=== PATIENT | male | born 1980 | race American Indian/Alaskan Native ===

== ENCOUNTER 2019-01-05 06:38 | Inpatient (IN) ==
[2019-01-05] MEDS ORDERED: CLINDAMYCIN 600 MG in DEXTROSE 5% IN WATER 50 ML IV SCH (07:30)
[2019-01-05 08:20] LABS: Basophils # (Auto) 0 K/mcL (0.0-0.3); Basophils % (Auto) 0.3 % (0.0-2.0); Eosinophils # (Auto) 0.2 K/mcL (0.0-0.7); Eosinophils % (Auto) 1.3 % (0.0-7.0); Granulocytes % (Auto) 88.4 % (38.0-78.0); Hemoglobin 8.5 g/dL (13.5-16.5); Lymphocytes # (Auto) 0.9 K/mcL (1.5-4.8); Lymphocytes % (Auto) 5.6 % (15.5-49.0); Mean Cell Volume 89.8 fL (80.0-100.0); Mean Corpuscular HGB Conc 32.7 g/dL (31.0-36.0); Mean Platelet Volume 8.4 fL (7.4-10.4); Monocytes # (Auto) 0.7 K/mcL (0.1-0.9); Monocytes % (Auto) 4.4 % (1.0-12.0); Platelet Count 345 K/mcL (140-440); RBC 2.89 M/mcL (4.50-5.90); Red Cell Distribution Width 14.7 % (11.5-14.5); WBC 15.5 K/mcL (4.5-11.0)
--- NOTE | 2019-01-05 08:34 | XRay Report ---
HISTORY: Preop for drainage and debridement of a perineal mass FINDINGS: The lungs are clear and normally expanded. The bilateral infiltrates seen on the prior chest x-ray done on 10/09/18 have resolved. The heart, mediastinum, ursula and pleura are normal. IMPRESSION: Normal chest. Interpreted and Authenticated by: Cong Jolley 01/05/19
[2019-01-05 08:43] LABS: INR 1.3 (0.9-1.1); Prothrombin Time 16.3 sec (11.9-14.5)
[2019-01-05 08:45] LABS: ALT/SGPT 11 U/l (0-40); AST/SGOT 12 U/l (0-37); Albumin 3.5 gm/dL (3.2-5.2); Albumin/Globulin Ratio 0.9 (1.0-2.3); Alkaline Phosphatase 75 U/L (39-117); Bilirubin,Total 0.7 mg/dL (0.0-1.0); Blood Urea Nitrogen 34 mg/dl (6-20); Calcium 8.4 mg/dl (8.6-10.4); Carbon Dioxide 28 mmol/L (22-30); Chloride 88 mmol/L (96-108); Globulin 3.7 gm/dL (2.2-3.7); Glomerular Filtration Rate 7; Glucose 183 mg/dL (70-105); Potassium 4.6 mmol/L (3.3-5.1); Sodium 135 mmol/L (133-145)
[2019-01-05] MEDS ORDERED: GLYCOPYRROLATE 0.2 MG/ML VIAL IV ONE (10:15)
[2019-01-05] MEDS ORDERED: ONDANSETRON 4 MG/2 ML VIAL IV ONE (10:15)
[2019-01-05] MEDS ORDERED: KETAMINE 100 MG/ML ML IV ONE (10:15)
[2019-01-05] MEDS ORDERED: LIDOCAINE HCL/PF 100 MG/5 ML SYRINGE IV ONE (10:15)
[2019-01-05] MEDS ORDERED: fentaNYL 100 MCG/2 ML VIAL IV ONE (10:15)
[2019-01-05] MEDS ORDERED: PHENYLEPHRINE 10 MG/ML VIAL IV ONE (10:15)
[2019-01-05] MEDS ORDERED: MIDAZOLAM 2 MG/2 ML VIAL IV ONE (10:15)
[2019-01-05] MEDS ORDERED: PROPOFOL 200 MG/20 ML VIAL IV ONE (10:15)
--- NOTE | 2019-01-05 10:54 | Brief Operative Note ---
Date of procedure: 01/05/19 Pre-op diagnosis: perineal abscess Post-op diagnosis: other (perineal abscess) Procedure: DRAINAGE AND DEBRIDEMENT OF PERINEAL ABSCESS Grafts/Implants: No Anesthesia: GLMA Findings: ABSCESS EXTENDING FROM ANTERIOR RECTAL SPACE TO BASE OF SCROTUM Complications: other (TRANSIENT HYPOTENSION ON INDUCTION OF ANESTHESIA) Surgeon: Nathanael Powell Estimated blood loss (cc): 20 Specimens Removed/Pathology: other (CULTURE OF ABSCESS FLUID) Condition: stable Disposition: PACU
[2019-01-05] MEDS ORDERED: fentaNYL 100 MCG/2 ML VIAL IV PRN (11:17)
[2019-01-05] MEDS: 0.9 % SODIUM CHLORIDE 1,000 ML IV SCH (12:30)
[2019-01-05] MEDS ORDERED: ACETAMINOPHEN 1,000 MG/100 ML BOTTLE IV ONE ×2 (12:31→21:29)
[2019-01-05] MEDS: PIPERACILLIN SODIUM/TAZOBACTAM 3.375 GM in DEXTROSE 5% IN WATER 50 ML IV SCH ×2 (12:33→21:42)
[2019-01-05] MEDS: ACETAMINOPHEN 1,000 MG in PREMIX 1 BAG IV SCH ×2 (12:35→21:38)
[2019-01-05] MEDS ORDERED: DEXTROSE 31 GM ORAL.SUSP PO PRN (13:38)
[2019-01-05] MEDS ORDERED: DEXTROSE 50% 50 ML VIAL IV PRN (13:38)
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
[2019-01-05] MEDS ORDERED: 0.9 % SODIUM CHLORIDE 10 ML SYRINGE IV SCH ×2 (14:00)
[2019-01-05] MEDS: 0.9 % SODIUM CHLORIDE 10 ML SYRINGE IV SCH ×2 (14:17→21:56)
--- NOTE | 2019-01-05 16:20 | Operative Note ---
DATE OF OPERATION: 01/05/2019 PREOPERATIVE DIAGNOSIS: Perineal abscess. POSTOPERATIVE DIAGNOSIS: Perineal abscess. PROCEDURE: Drainage and debridement of perineal abscess. SURGEON: Nathanael Powell M.D. FINDINGS: Abscess extending from the anterior rectal space to the base of the scrotum in the midline and extending about 8 cm along the lateral rectal wall. COMPLICATIONS: Transient hypotension after induction of anesthesia. DESCRIPTION OF PROCEDURE: Under general anesthesia, the patient was prepped and draped in the sterile field. While the patient was being prepped, he had a severe profound hypotension with blood pressure less than 60. He was taken out of high lithotomy position, and his blood pressure was stabilized by Anesthesia with pressors. He had good return of blood pressure and the procedure continued. Timeout was carried out. An 18-gauge needle was pushed into the depth of the indurated mass in the midline but no purulence was noted. An 11 blade was then used to cut along the median rhaphe proximal to the anterior anal opening. Once the subcutaneous tissue was incised using a Bethany clamp, the tissue was divided until a large volume of purulence was encountered. This was cultured for aerobic, anaerobic and Gram stain. A large Bethany clamp was placed and using a needle tip cautery, the midline was opened further for a distance of about 3 cm. A finger was then placed in the cavity and all loculations were fractured. The area was irrigated with 500 mL of saline. A 1/4-inch Mobile drain was placed and brought out slightly lateral and anterior. The drain was sutured to itself with a 2-0 Prolene. The cavity was loosely packed with a 4 x 5-inch gauze that was cut in half. The patient was taken out of lithotomy and a dressing was placed. He was awakened and transferred to the postanesthetic care unit in stable, satisfactory condition. LCS:germaine Job ID: [id number] Doc ID: [id number] Nathanael Powell M.D.
[2019-01-05] MEDS: PANTOPRAZOLE 40 MG TABLET PO SCH (17:53)
[2019-01-05] MEDS ORDERED: ATORVASTATIN 20 MG TABLET PO SCH (21:00)
[2019-01-05] MEDS: INSULIN LISPRO 1 UNIT/0.01 ML UNIT SQ SCH (21:37)
[2019-01-05] MEDS: PIPERACILLIN SODIUM/TAZOBACTAM 2.25 GM in DEXTROSE 5% IN WATER 50 ML IV SCH (21:55)
[2019-01-06] MEDS: PIPERACILLIN SODIUM/TAZOBACTAM 3.375 GM in DEXTROSE 5% IN WATER 50 ML IV SCH (00:18)
[2019-01-06] MEDS: ACETAMINOPHEN 1,000 MG in PREMIX 1 BAG IV SCH ×2 (03:08→07:11)
[2019-01-06 05:24] LABS: Basophils # (Auto) 0.1 K/mcL (0.0-0.3); Basophils % (Auto) 0.5 % (0.0-2.0); Eosinophils # (Auto) 0.4 K/mcL (0.0-0.7); Eosinophils % (Auto) 3.6 % (0.0-7.0); Granulocytes % (Auto) 83.1 % (38.0-78.0); Hematocrit 24.9 % (41.0-55.0); Hemoglobin 8.2 g/dL (13.5-16.5); Lymphocytes % (Auto) 8.3 % (15.5-49.0); Mean Cell Volume 89.6 fL (80.0-100.0); Mean Corpuscular HGB Conc 32.8 g/dL (31.0-36.0); Mean Platelet Volume 8.3 fL (7.4-10.4); Monocytes # (Auto) 0.6 K/mcL (0.1-0.9); Monocytes % (Auto) 4.5 % (1.0-12.0); Platelet Count 323 K/mcL (140-440); RBC 2.78 M/mcL (4.50-5.90); Red Cell Distribution Width 14.5 % (11.5-14.5); WBC 12.3 K/mcL (4.5-11.0)
[2019-01-06 05:46] LABS: ALT/SGPT 12 U/l (0-40); AST/SGOT 11 U/l (0-37); Albumin 3.2 gm/dL (3.2-5.2); Albumin/Globulin Ratio 0.9 (1.0-2.3); Alkaline Phosphatase 70 U/L (39-117); Bilirubin,Direct < 0.2 mg/dL (0.0-0.3); Bilirubin,Total 0.6 mg/dL (0.0-1.0); Blood Urea Nitrogen 15 mg/dl (6-20); Calcium 8.1 mg/dl (8.6-10.4); Carbon Dioxide 29 mmol/L (22-30); Chloride 94 mmol/L (96-108); Globulin 3.5 gm/dL (2.2-3.7); Glomerular Filtration Rate 14; Glucose 148 mg/dL (70-105); Lactate Dehydrogenase 145 U/L (94-250); Phosphorous 4.5 mg/dL (2.7-4.5); Potassium 4.1 mmol/L (3.3-5.1); Sodium 135 mmol/L (133-145); Triglycerides 173 mg/dl (<150); Uric Acid 3.3 mg/dL (2.5-8.0)
[2019-01-06] MEDS: 0.9 % SODIUM CHLORIDE 10 ML SYRINGE IV SCH ×2 (06:43→12:01)
[2019-01-06] MEDS ORDERED: ACETAMINOPHEN 1,000 MG/100 ML BOTTLE IV ONE (07:10)
[2019-01-06] MEDS: INSULIN LISPRO 1 UNIT/0.01 ML UNIT SQ SCH ×2 (07:10→12:00)
[2019-01-06] MEDS: PANTOPRAZOLE 40 MG TABLET PO SCH (07:12)
--- NOTE | 2019-01-06 08:15 | Nephrology Progress Note ---
Subjective Patient information: Note initiated : 01/06/19 at 8:13 am Service Date, if different from initiated Date: [] Patient: Jonathan Medina 38 y/o M admitted on 01/05/19 for Drainage and Debridement of Perineal Mass. Chief Complaint: [] Feeling a lot better. Pain is still there under his scrotum but the gluteal pain is lot better. Objective - Vital Signs Vital signs: Vital Signs Temp Pulse Pulse Resp BP BP Pulse Ox 01/06/19 07:27 98.8 F 20 127/73 92 01/06/19 07:01 98.8 F 24 H 127/73 92 01/06/19 06:01 19 135/72 01/06/19 05:01 128/60 01/06/19 04:01 97.4 F 67 18 119/53 100 01/06/19 03:00 72 16 131/75 99 01/06/19 02:00 75 19 120/57 99 01/06/19 01:00 80 27 H 130/73 96 01/06/19 00:00 82 22 127/67 98 01/05/19 23:22 99.6 F H 86 18 112/68 99 01/05/19 23:00 85 16 112/68 98 01/05/19 22:47 98.4 F 80 20 139/69 99 01/05/19 22:00 91 H 25 H 139/69 94 01/05/19 21:55 98.2 F 91 H 18 139/69 94 01/05/19 21:10 98.0 F 97 H 18 146/73 98 01/05/19 21:09 86 24 H 100 01/05/19 21:00 84 25 H 146/73 98 01/05/19 20:55 98.1 F 89 146/73 01/05/19 20:46 77 21 144/73 100 01/05/19 20:43 79 18 148/72 98 01/05/19 20:40 77 148/72 01/05/19 20:32 73 17 150/67 100 01/05/19 20:30 24 H 99 01/05/19 20:25 74 150/67 01/05/19 20:16 73 20 149/71 100 01/05/19 20:10 74 149/71 01/05/19 20:02 18 133/65 01/05/19 19:55 72 133/65 01/05/19 19:47 21 145/74 01/05/19 19:40 73 145/74 01/05/19 19:31 74 22 153/70 100 01/05/19 19:25 74 153/70 01/05/19 19:16 72 24 H 136/69 100 01/05/19 19:10 71 136/69 01/05/19 19:02 72 20 140/68 98 01/05/19 18:55 74 140/68 01/05/19 18:46 72 20 143/69 98 01/05/19 18:40 72 143/69 01/05/19 18:31 22 142/72 01/05/19 18:25 77 142/72 01/05/19 18:24 72 23 H 98 01/05/19 18:17 71 24 H 130/68 92 01/05/19 18:10 72 130/68 01/05/19 18:01 72 22 138/69 98 01/05/19 17:55 76 138/69 01/05/19 17:51 72 17 99 01/05/19 17:46 75 17 150/72 99 01/05/19 17:40 74 150/72 01/05/19 17:32 71 22 132/69 97 01/05/19 17:25 75 132/69 01/05/19 17:16 73 19 130/72 96 01/05/19 17:10 72 130/72 01/05/19 17:01 98.8 F 73 24 H 126/72 99 01/05/19 16:55 89 126/72 01/05/19 16:46 76 18 126/72 97 01/05/19 16:40 75 122/74 01/05/19 16:31 74 19 122/74 98 01/05/19 16:27 77 18 116/72 99 01/05/19 16:20 97.4 F 77 116/72 01/05/19 14:20 15 01/05/19 13:16 26 H 137/77 01/05/19 13:03 25 H 137/83 01/05/19 12:46 12 134/78 01/05/19 12:38 14 01/05/19 12:34 98.6 F 01/05/19 12:31 21 123/76 01/05/19 12:16 93 H 27 H 123/70 96 01/05/19 12:07 94 H 24 H 120/68 92 01/05/19 12:05 95 H 25 H 119/67 85 L 01/05/19 12:00 99.3 F H 95 H 26 H 120/68 92 01/05/19 11:49 99.3 F H 90 26 H 120/68 96 01/05/19 11:35 100 F H 96 H 28 H 129/67 96 01/05/19 11:25 100.1 F H 96 H 24 H 129/68 96 01/05/19 11:15 100.1 F H 94 H 20 125/65 96 01/05/19 11:05 99.9 F H 95 H 28 H 140/86 95 01/05/19 11:00 92 H 30 H 135/72 100 01/05/19 10:57 100.7 F H 94 H 30 H 137/75 100 Intake and Output 01/05/19 01/06/19 01/06/19 21:59 05:59 13:59 Intake Total 1154 510 Output Total 4000 Balance -2846 510 Intake: IV 204 150 OFIRMEV 1,000 mg In 100 ml @ 0 100 mls/hr IV .STK-MED ONE Rx#: [id number] Ofirmev 1,000 mg In Premix 1 100 Bag @ 200 mls/hr IV Q6H [facility] Rx# :[id number] Cleocin 600 mg In Dextrose 5% 54 in Water 50 ml @ 100 mls/hr IV PREOP YFN Rx#:[id number] Zosyn 2.25 gm In Dextrose 5% in 50 Water 50 ml @ 100 mls/hr IV Q12H [facility] Rx#:[id number] Zosyn 3.375 gm In Dextrose 5% 50 in Water 50 ml @ 100 mls/hr IV Q6H [facility] Rx#:[id number] Oral 950 360 Output: Hemodialysis UF 4000 Other: Meal Dinner Percent of Meal Consumed 75% Feeding Ability Independent Weight 188 lb Intake & Output: Intake & Output 01/05/19 01/06/19 01/06/19 21:59 05:59 13:59 Intake Total 1154 510 Output Total 4000 Balance -2846 510 Weight 188 lb Intake: IV 204 150 OFIRMEV 1,000 mg In 100 ml @ 0 100 mls/hr IV .STK-[facility] Rx#: [id number] Ofirmev 1,000 mg In Premix 1 100 Bag @ 200 mls/hr IV Q6H [facility] Rx# :[id number] Cleocin 600 mg In Dextrose 5% 54 in Water 50 ml @ 100 mls/hr IV PREOP YFN Rx#:[id number] Zosyn 2.25 gm In Dextrose 5% in 50 Water 50 ml @ 100 mls/hr IV Q12H YFN Rx#:[id number] Zosyn 3.375 gm In Dextrose 5% 50 in Water 50 ml @ 100 mls/hr IV Q6H [facility] Rx#:[id number] Oral 950 360 Output: Hemodialysis UF 4000 Other: Meal Dinner Percent of Meal Consumed 75% Feeding Ability Independent - General Appearance General appearance: well-developed, well-nourished EENT: ATNC Neck: no JVD Respiratory: no kyphosis Cardiology: no murmurs Integumentary: no rash Neurologic: no focal deficit - Lab 01/06/19 03:35 01/06/19 03:35 Most recent lab results Calcium 8.1 mg/dl (8.6-10.4) L 01/06/19 03:35 Phosphorus 4.5 mg/dL (2.7-4.5) 01/06/19 03:35 Magnesium 2.0 mg/dL (1.6-2.5) 01/06/19 03:35 Assessment and Plan (1) ESRD (end stage renal disease) Had hemodialysis yesterday with 4 liters of fluid removal. Now hemodynamically stable. Will set up for dialysis tomorrow. Status: Chronic Comment: Had hemodialysis yesterday with 4 liters of fluid removal. Now hemodynamically stable. Will set up for dialysis tomorrow.
--- NOTE | 2019-01-06 08:52 | Consultation ---
DATE OF CONSULTATION: 01/05/2019 REFERRING PHYSICIAN: Chace Miranda M.D. REASON FOR CONSULTATION: End-stage renal disease. HISTORY OF PRESENT ILLNESS: The patient is a 38-year-old gentleman with history of type 1 diabetes with all the complications of diabetes including diabetic retinopathy and neuropathy. He has been doing dialysis three times a week at [facility]. He also had profound visual changes related to diabetes. He has had left gluteal pain for a couple days that has just been getting worse. He saw Dr. Powell for that, and he had a perirectal abscess which was drained. Perioperatively, he developed hypotension for which reason he is hospitalized. His troponin went up a little bit. PAST MEDICAL HISTORY: Significant for: 1. End-stage renal disease on hemodialysis. 2. Chronic congestive heart failure, now resolved. 3. Hypertension. 4. Diabetic kidney disease. 5. Diabetic retinopathy. PAST SURGICAL HISTORY: He had an upper endoscopy. FAMILY HISTORY: Mother , had an HI at 46. Had breast cancer, kidney failure and diabetes. Father of throat cancer and had diabetes. MEDICATIONS ON ADMISSION: 1. Amlodipine 10 mg once daily. 2. PhosLo 1334 mg p.o. three times daily. 3. Torsemide 100 mg once daily. 4. Ergocalciferol 50,000 units once weekly. 5. Nephro-Kaila one tablet once daily. 6. Cetirizine 10 mg once daily. 7. Lisinopril 40 mg daily. 8. Pantoprazole 40 mg daily. REVIEW OF SYSTEMS: Ten systems are reviewed as indicated in the history of present illness. PHYSICAL EXAMINATION: GENERAL: Alert and oriented x3 in no apparent distress. VITAL SIGNS: Blood pressures have been 120 to 130 systolic with a diastolic in the 80s. Pulse rates have been in the 80s. HEENT: NC/AT. External auditory canal appears normal. Oral cavity with normal mucosa. NECK: Supple. No jugular venous distention. No lymphadenopathy. No thyromegaly. LUNGS: Decreased air entry bilaterally. No rales or rhonchi. CARDIAC: S1, S2 heard. No S3, S4. No murmurs, no rubs. ABDOMEN: Soft, nontender. No organomegaly. Positive bowel sounds. EXTREMITIES: Did not show evidence of edema. LABORATORY DATA: White count is 15.5 with a hemoglobin of 8.5 and a platelet count of 345. Sodium 135, potassium 4.6, chloride of 88, CO2 28, BUN of 34, creatinine of 9.2. ASSESSMENT AND PLAN: 1. End-stage renal disease on hemodialysis. We will dialyze him today and attempt to remove 3 to 4 liters of fluid as tolerated. He did receive some fluids in the operating room as well. I think his blood pressure would tolerate as he usually takes out that amount of fluid. 2. Electrolytes look okay. Thank you, Dr. Miranda, for referring this patient for a consultation. I will follow with you. Paige Job ID: [id number] Doc ID: [id number] Elpidio Miranda MD
[2019-01-06] MEDS ORDERED: ALBUTEROL SULFATE 1 PUFF INHALER INH PRN (08:58)
--- NOTE | 2019-01-06 08:58 | Internal Med Progress Note ---
Medical - PN: Subj Patient information: Note initiated : 01/06/19 at 8:54 am Service Date, if different from initiated Date: [] Patient: Jonathan Medina 38 y/o M admitted on 01/05/19 for Drainage and Debridement of Perineal Mass. Chief Complaint: [] Interval history: Mr. Medina is a 38 year old M with h/o DM on insulin , ESRD on HD per Dr Vides, presented to the hospital for treatment of a ulices-rectal abscess. The patient underwent surgery today. The patient took all his medications this morning before he presented for surgery this morning. His medications include lisinopril 40 mg and torsemide 20. During the surgery, I believe at the time of induction the patient sustained an episode of hypotension, during which his blood pressure was not recorded, the patient was resuscitated and the patient's blood pressure came back to normal. Otherwise the surgery went well. Postoperatively medicine was consulted given perioperative hypertension and also management of chronic medical disease. On my evaluation patient is lying comfortably in bed, he denies any chest pain shortness of breath palpitations dizziness nausea belly pain or any other acute complaints. Feels great. 01/06 Pt seen examined, no acute issues, no events on tele reported Patient had low troponin 0 0.05 yesterday and then 0.04. Patient is ESRD on dialysis so this could be chronic low elevation of troponin or could be related to the low blood pressure during surgery. Patient has no EKG changes or any cardiac symptoms to suggest ongoing process. Barton patient will be started on aspirin 81 mg and statin. Patient is stable for discharge if cleared by surgery Pertinent ROS: Denies headache, dizziness Denies chest pain, palpitations Denies cough or shortness of breath Denies abdominal pain, nausea or vomiting. - Constitutional Vitals: Vital Signs Temp Pulse Resp BP Pulse Ox 98.8 F 67 20 127/73 92 01/06/19 07:27 01/06/19 04:01 01/06/19 07:27 01/06/19 07:27 01/06/19 07:27 Period Temp Pulse Resp BP Sys/Lockett Pulse Ox Last 24 Hr 97.4 F-100.7 F 67-97 12-30 112-153/53-86 85-100 Intake and Output 01/05/19 01/06/19 01/06/19 21:59 05:59 13:59 Intake Total 1154 510 Output Total 4000 Balance -2846 510 Weight 188 lb Intake & Output: Intake & Output 01/05/19 01/06/19 01/06/19 21:59 05:59 13:59 Intake Total 1154 510 Output Total 4000 Balance -2846 510 Weight 188 lb Intake: IV 204 150 OFIRMEV 1,000 mg In 100 ml @ 0 100 mls/hr IV .STK-[facility] ONE Rx#: [id number] Ofirmev 1,000 mg In Premix 1 100 Bag @ 200 mls/hr IV Q6H [facility] Rx# :[id number] Cleocin 600 mg In Dextrose 5% 54 in Water 50 ml @ 100 mls/hr IV PREOP YFN Rx#:[id number] Zosyn 2.25 gm In Dextrose 5% in 50 Water 50 ml @ 100 mls/hr IV Q12H YFN Rx#:[id number] Zosyn 3.375 gm In Dextrose 5% 50 in Water 50 ml @ 100 mls/hr IV Q6H YFN Rx#:[id number] Oral 950 360 Output: Hemodialysis UF 4000 Other: Meal Dinner Percent of Meal Consumed 75% Feeding Ability Independent Exam: Constitutional; Afebrile, cooperative, alert, not in distress. Respiratory system: Air Entry equal on both sides, No crackles or wheezing, no rhonchi. CVS- Rate rhythm regular, S1,S2 heard, no gallop, no rub. Abdomen- Soft nontender abdomen, no organomegaly, no tenderness, no guarding or rigidity, [employer]- AOOx3, moving all extremities, no gross focal deficit noted. Medical - PN: Obj Da - Labs CBC & Chem 7: 01/06/19 03:35 01/06/19 03:35 Labs: Abnormal Lab Results 01/06/19 01/06/19 01/05/19 03:35 03:35 18:56 WBC 12.3 H RBC 2.78 L Hgb 8.2 L Hct 24.9 L RDW Gran % 83.1 H Lymph % (Auto) 8.3 L Gran # 10.2 H Lymph # (Auto) 1.0 L PT INR APTT Chloride 94 L Anion Gap BUN Creatinine 5.0 H Glucose 148 H Calcium 8.1 L Troponin T 0.05 H* Albumin/Globulin Ratio 0.9 L Triglycerides 173 H 01/05/19 01/05/19 01/05/19 12:57 07:24 07:24 WBC RBC Hgb Hct RDW Gran % Lymph % (Auto) Gran # Lymph # (Auto) PT 16.3 H INR 1.3 H APTT 38 H Chloride 88 L Anion Gap 19.0 H BUN 34 H Creatinine 9.2 H* Glucose 183 H Calcium 8.4 L Troponin T 0.06 H* Albumin/Globulin Ratio 0.9 L Triglycerides 01/05/19 07:24 WBC 15.5 H RBC 2.89 L Hgb 8.5 L Hct 26.0 L RDW 14.7 H Gran % 88.4 H Lymph % (Auto) 5.6 L Gran # 13.7 H Lymph # (Auto) 0.9 L PT INR APTT Chloride Anion Gap BUN Creatinine Glucose Calcium Troponin T Albumin/Globulin Ratio Triglycerides Meds: Medications Aspirin (Aspirin) 81 mg PO DAILY [facility] Atorvastatin Calcium (Lipitor) 40 mg PO HS [facility] Last Admin: 01/05/19 21:42 Dose: 40 mg Documented by: Dextrose (Dextrose 50%) 0 ml IV UD PRN PRN Reason: Hypoglycemia Diagnostic Test (Pha) (Accu-Chek) 1 each FS [facility] Last Admin: 01/06/19 07:04 Dose: 1 each Documented by: Fentanyl (Sublimaze) 25 mcg IV Q3HP PRN PRN Reason: PAIN LEVEL > 6 Glucose (Insta-Glucose) 15 gm PO PRN PRN PRN Reason: Hypoglycemia Sodium Chloride (Sodium Chloride 0.9%) 1,000 mls @ 50 mls/hr IV .Q20H [facility] Last Admin: 01/05/19 12:30 Dose: 50 mls/hr Documented by: Acetaminophen 1,000 mg/ Premix 100 mls @ 200 mls/hr IV Q6H [facility] Stop: 01/06/19 12:29 Last Admin: 01/06/19 07:11 Dose: 200 mls/hr Documented by: Piperacillin Sod/Tazobactam (Sod 2.25 gm/ Dextrose) 50 mls @ 100 mls/hr IV Q12H [facility] Last Infusion: 01/06/19 00:17 Dose: Infused Documented by: Insulin Human Lispro (Humalog) 0 unit SQ [facility]; Protocol Last Admin: 01/06/19 07:10 Dose: 2 unit Documented by: Pantoprazole Sodium (Protonix) 40 mg PO BIDAC [facility] Last Admin: 01/06/19 07:12 Dose: 40 mg Documented by: Sodium Chloride (Saline Flush) 10 ml IV Q8 [facility] Last Admin: 01/06/19 06:43 Dose: Not Given Documented by: Medical - PN: A/P - Time Spent With Patient Total time spent is greater than 50% in coordination of care (as documented) at patient's floor/unit and/or counseling patient: - Narrative A/P Narrative: A/P Ulices operative Hypotenstion - due to meds, resolved Type 2 demand ischemia, Myocardial injury after non cardiac surgery -start on po asa and statin DM with retinopathy/ nephropathy - SSI insulin for glucose coverage ESRD - On HD as per Nephrology ,Dr Vides follows the patient, had dialysis yesterday HTN -Resume home meds Anemia of chronic renal disease -Hb stable no indication of xfusion. Perirectal abscess -on zosyn, management per surgery. Stable for d/c once cleared by surgery Medical - PN: Qual - VTE Deep Vein Thrombosis/Pulmonary Embolism Present on Admission: No
[2019-01-06] MEDS ORDERED: TORSEMIDE 100 MG PO SCH (09:00)
[2019-01-06] MEDS ORDERED: FOLIC ACID/VITAMIN B COMP W-C 1 TAB TABLET PO SCH (09:00)
[2019-01-06] MEDS ORDERED: ESCITALOPRAM 10 MG TABLET PO SCH (09:00)
[2019-01-06] MEDS: PIPERACILLIN SODIUM/TAZOBACTAM 2.25 GM in DEXTROSE 5% IN WATER 50 ML IV SCH (09:00)
[2019-01-06] MEDS ORDERED: CETIRIZINE 10 MG TABLET PO SCH (09:00)
[2019-01-06] MEDS ORDERED: ASPIRIN 81 MG TAB.CHEW PO SCH (09:00)
[2019-01-06] MEDS ORDERED: TORSEMIDE 10 MG TABLET PO SCH ×2 (09:00→21:00)
[2019-01-06] MEDS ORDERED: amLODIPine 10 MG TABLET PO SCH (09:00)
[2019-01-06] MEDS: prednisoLONE 1% OPHTH DROPS 1ML BOTTLE OD SCH ×2 (09:45→11:56)
[2019-01-06] MEDS: 0.9 % SODIUM CHLORIDE 1,000 ML IV SCH (10:14)
--- NOTE | 2019-01-06 11:51 | Discharge Summary ---
Providers - Providers Patient information: Note initiated : 01/06/19 at 11:47 am Service Date, if different from initiated Date: [] Patient: Jonathan Medina 38 y/o M admitted on 01/05/19 for Drainage and Debridement of Perineal Mass. Chief Complaint: [] Date of admission: 01/05/19 Discharge date: 01/06/19 Attending physician: Nathanael Powell Hospitalization Hospital course: 38-year-old male with history of a perineal abscess that extended into the anterior rectal space to the base of the scrotum. This was incised and drained on yesterday. After induction of anesthesia, he developed hypotension with some ST segment depression on EKG. He , was treated with IV pressors and increased fluid volume with return of blood pressure. He remained tachycardic to 120 range. He had wide incision and surgical debridement of the abscess cavity. He was admitted postoperatively for monitoring. There was a slight elevation of his troponin, however, he has end-stage renal disease in the etiology of this is probably multifactorial. It is probable that he did have some transient ischemia which resolved. Follow-up EKG is normal. The patient was dialyzed on yesterday and is doing well today. Latest troponin is 0.05. Patient is stable and will be discharged home on clindamycin, which he already has. His cultures will be changed based on final culture results.. Discharge diagnosis: anterior perirectal abscess Secondary discharge diagnosis: Transient hypotension with induction of anesthesia. End-stage renal disease on hemodialysis Reason for admission: perineal abscess Procedures: Incision and drainage with debridement of perineal abscess Pertinent studies/significant findings: None Complications: None Exam Temp Pulse Resp BP Pulse Ox 98.8 F 67 20 141/79 95 01/06/19 08:01 01/06/19 04:01 01/06/19 10:59 01/06/19 10:59 01/06/19 10:01 - General physical appearance well developed, well nourished, no distress - Eyes PERRL, normal ocular movement - ENT normal pinna, normal nares, normal mucosa, no hearing loss, no congestion - Head Head exam IM: Present: atraumatic, normocephalic - Neck no masses, no bruits, trachea midline, no lymphadenopathy, no venous distension - Cardiovascular Cardiovascular exam IM: Present: normal rate and rhythm, RRR, +S1, +S2. Absent: JVD, tachycardia - Respiratory normal expansion, normal respiratory effort, clear to auscultation - Abdomen Abdomen: Present: soft, non tender, bowel sounds Hernia: Present: none - Genitourinary Present: normal penis with no external lesions - Rectum Rectum: Present: normal sphincter tone, no hemorrhoids, no tenderness, no masses, no bleeding, other ( induration and tenderness of perineal space with improvement from yesterday) - Integumentary Present: no rash, no growths, no abnormal pigmentation - Neurologic Present: normal coordination, normal sensation - Musculoskeletal Present: normal gait, normal posture, other ( AV fistula left upper extremity) - Psychiatric Present: oriented to time, oriented to person, oriented to place, speech is normal, memory intact Discharge Plan - Patient/Caregiver Discharge Instructions Activity: increase activity as tolerated, other ( may shower as needed) Diet: Renal Additional Instructions: Keep the area of the perineum clean with regular soap and water. May wear perineal pads to protect clothing. The the drain in place until your return to the office. Complete the clindamycin antibiotics that you presently have a home Follow up in the office in 2 weeks - Follow up Plan Follow up with: Nathanael Powell MD [Physician] - 01/24/19 8:45 am Disposition: Home, Self-Care Prognosis: Good Rehab Potential: Good I certify that the patient requires SNF services.: No Overall status at discharge: patient is progressing back to baseline Pending Studies Resuscitation Status Full Code Diet Renal Diet Start ThuJan 05 1120 Amlodipine Besylate (Norvasc) 10 mg PO QDAY [facility] Last Admin: 01/06/19 09:20 Dose: 10 mg Documented by: [id number] Aspirin (Aspirin) 81 mg PO DAILY [facility] Last Admin: 01/06/19 09:20 Dose: 81 mg Documented by: [id number] Atorvastatin Calcium (Lipitor) 40 mg PO HS [facility] Last Admin: 01/05/19 21:42 Dose: 40 mg Documented by: [email or web address] Cetirizine HCl (Zyrtec) 10 mg PO DAILY [facility] Last Admin: 01/06/19 09:48 Dose: 10 mg Documented by: [id number] Diagnostic Test (Pha) (Accu-Chek) 1 each FS ACHS [facility] Last Admin: 01/06/19 07:04 Dose: 1 each Documented by: [id number] Admin: 01/05/19 21:36 Dose: Not Given Documented by: [id number] Admin: 01/05/19 21:36 Dose: 1 each Documented by: [email or web address] Escitalopram Oxalate (Lexapro) 10 mg PO DAILY [facility] Last Admin: 01/06/19 09:20 Dose: 10 mg Documented by: [id number] Acetaminophen 1,000 mg/ Premix 100 mls @ 200 mls/hr IV Q6H [facility] Stop: 01/06/19 12:29 Last Infusion: 01/06/19 08:00 Dose: 0 mls/hr Documented by: [id number] Admin: 01/06/19 07:11 Dose: 200 mls/hr Documented by: Admin: 01/06/19 03:08 Dose: Not Given Documented by: Infusion: 01/05/19 22:25 Dose: 0 mls/hr Documented by: Admin: 01/05/19 21:38 Dose: 200 mls/hr Documented by: Admin: 01/05/19 12:35 Dose: Not Given Documented by: [email or web address] Piperacillin Sod/Tazobactam (Sod 2.25 gm/ Dextrose) 50 mls @ 100 mls/hr IV Q12H [facility] Last Infusion: 01/06/19 09:30 Dose: 0 mls/hr Documented by: Admin: 01/06/19 09:00 Dose: 100 mls/hr Documented by: Infusion: 01/06/19 00:17 Dose: 0 mls/hr Documented by: Admin: 01/05/19 21:55 Dose: 100 mls/hr Documented by: [email or web address] Insulin Human Lispro (Humalog) 0 unit SQ ACHS [facility]; Protocol Last Admin: 01/06/19 07:10 Dose: 2 unit Documented by: [id number] Admin: 01/05/19 21:37 Dose: Not Given Documented by: Admin: 01/05/19 21:37 Dose: Not Given Documented by: EZ Multivit/Ca Carb/B Cmplx/FA/Prenat (Diatx) 1 tab PO DAILY [facility] Last Admin: 01/06/19 09:45 Dose: 1 tab Documented by: [id number] Pantoprazole Sodium (Protonix) 40 mg PO BIDAC [facility] Last Admin: 01/06/19 07:12 Dose: 40 mg Documented by: [email or web address] Admin: 01/05/19 17:53 Dose: 40 mg Documented by: [email or web address] Prednisolone Acetate (Pred Forte Ophth Drops) 1 gtt OD QID [facility] Last Admin: 01/06/19 09:45 Dose: Not Given Documented by: [id number] Sodium Chloride (Saline Flush) 10 ml IV Q8 [facility] Last Admin: 01/06/19 06:43 Dose: Not Given Documented by: [email or web address] Admin: 01/05/19 21:56 Dose: Not Given Documented by: [email or web address] Admin: 01/05/19 14:17 Dose: Not Given Documented by: [id number] Torsemide (Demadex) 40 mg PO DAILY [facility] Last Admin: 01/06/19 10:14 Dose: 40 mg Documented by: [id number] Shift Summary 01/06/19 05:06 Shift Summary by Ivonne Reyes Pt admitted to PCU status for hypotension and EKG changes, ESRD by Dr. Powell with Hospitalist consulting. Pt underwent I&D of perineal abscess and during general anesthesia induction became hypotensive and subsequently admitted to ICU. Since admission, pt has received dialysis (net of 4L) which he tolerated well - he is a Dr. Vides patient and normal HD days are M//. VS have remained stable, sinus rhythm, 2L via oxymask (per his request) while he sleeps. PIV to right hand with NS @ 50 ml/hr. He is pleasant, cooperative, oriented x4. Voids per urinal however reports that he does not make much urine usually. Initial troponin was 0.06, repeat 0.05; no complaints of chest pain/pressure or increased SOB. Portable CXR WNL. Dressing to perineum has small amt of shadow drainage with niecy drain in place. Pt reports little to no pain in affected area. Will update verbally at bedside. Initialized on 01/06/19 05:06 - END OF NOTE
[2019-01-06] MEDS ORDERED: CALCIUM ACETATE 667 MG CAPSULE PO SCH (12:00)
[2019-01-06] MEDS ORDERED: LISINOPRIL 20 MG TABLET PO SCH (21:00)
[2019-01-07] MEDS ORDERED: PANTOPRAZOLE 40 MG TABLET PO SCH (07:30)
== END 2019-01-06 13:15 | disposition home or self-care (01) | DRG 602 ==
LOC: SUR 06:38 → ICU 11:49
PROVIDERS: ADMIT Family Medicine Adult Medicine; ATTEND Family Medicine Adult Medicine

== ENCOUNTER 2019-04-25 11:12 | Inpatient (IN) ==
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
[2019-04-25] MEDS ORDERED: PIPERACILLIN SODIUM/TAZOBACTAM 3.375 GM in DEXTROSE 5% IN WATER 50 ML IV SCH (12:00)
--- NOTE | 2019-04-25 12:06 | XRay Report ---
CLINICAL INFORMATION: SOB and cough COMPARISON: 01/05/2019 FINDINGS: Heart size, mediastinum and pulmonary vessels are normal. Large patchy right lung field alveolar infiltrates appreciated predominantly in the upper and middle lobes. Left lung is clear. Small right pleural effusion noted. Bones and soft tissues normal IMPRESSION: Large patchy alveolar right lung alveolar infiltrate - predominantly in the upper and middle lobes. Suggest follow-up radiographs in 2-3 weeks to ensure complete resolution (i.e. the absence of underlying nodules) Interpreted and Authenticated by: Art Rodrigues 04/25/19
[2019-04-25 12:14] LABS: Basophils # (Auto) 0.1 K/mcL (0.0-0.3); Basophils % (Auto) 0.5 % (0.0-2.0); Eosinophils # (Auto) 0.3 K/mcL (0.0-0.7); Eosinophils % (Auto) 1.7 % (0.0-7.0); Granulocytes % (Auto) 90.4 % (38.0-78.0); Hematocrit 32.7 % (41.0-55.0); Lymphocytes # (Auto) 0.7 K/mcL (1.5-4.8); Lymphocytes % (Auto) 4.1 % (15.5-49.0); Mean Cell Volume 89.8 fL (80.0-100.0); Mean Corpuscular HGB Conc 33.7 g/dL (31.0-36.0); Mean Platelet Volume 8.2 fL (7.4-10.4); Monocytes # (Auto) 0.6 K/mcL (0.1-0.9); Monocytes % (Auto) 3.3 % (1.0-12.0); Platelet Count 259 K/mcL (140-440); RBC 3.64 M/mcL (4.50-5.90); Red Cell Distribution Width 15.5 % (11.5-14.5); WBC 17.4 K/mcL (4.5-11.0)
[2019-04-25 12:45] LABS: ALT/SGPT 26 U/l (0-40); AST/SGOT 15 U/l (0-37); Albumin/Globulin Ratio 1.1 (1.0-2.3); Alkaline Phosphatase 99 U/L (39-117); Bilirubin,Total 0.7 mg/dL (0.0-1.0); Blood Urea Nitrogen 71 mg/dl (6-20); Calcium 7.5 mg/dl (8.6-10.4); Carbon Dioxide 20 mmol/L (22-30); Chloride 100 mmol/L (96-108); Globulin 3.5 gm/dL (2.2-3.7); Glucose 189 mg/dL (70-105)
[2019-04-25] MEDS ORDERED: ONDANSETRON 4 MG/2 ML VIAL IV ONE (13:00)
[2019-04-25 13:08] LABS: Glomerular Filtration Rate 4
[2019-04-25] MEDS ORDERED: DEXTROSE 50% 50 ML VIAL IV ONE (13:14)
[2019-04-25] MEDS ORDERED: INSULIN REGULAR, HUMAN 1 UNIT/0.01 ML UNIT IV ONE (13:14)
[2019-04-25] MEDS ORDERED: SODIUM POLYSTYRENE SULFONATE 15 GM/60 ML SUSPENSION PO ONE (13:14)
[2019-04-25] MEDS ORDERED: CALCIUM CHLORIDE 1,000 MG/10 ML SYRINGE IV ONE (13:14)
[2019-04-25] MEDS ORDERED: ALBUTEROL SULFATE 5 MG/ML NEB SOLUTION BOTTLE NEB ONE ×2 (13:14→13:39)
[2019-04-25] MEDS ORDERED: FUROSEMIDE 100 MG/10 ML VIAL IV ONE (13:14)
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
[2019-04-25] MEDS ORDERED: POLYETHYLENE GLYCOL 3350 17 GM PACKET PO PRN (15:03)
[2019-04-25] MEDS ORDERED: oxyCODONE/APAP 10/325MG TABLET PO PRN (15:03)
[2019-04-25] MEDS ORDERED: METOCLOPRAMIDE 10 MG/2 ML VIAL IV PRN (15:03)
[2019-04-25] MEDS ORDERED: IPRATROPIUM/ALBUTEROL 3 ML AMPUL.NEB NEB PRN (15:03)
[2019-04-25] MEDS ORDERED: cefTRIAXone 1 GM in DEXTROSE 5% IN WATER 50 ML IV SCH (15:03)
[2019-04-25] MEDS ORDERED: ACETAMINOPHEN 325 MG TABLET PO PRN (15:03)
[2019-04-25] MEDS ORDERED: ONDANSETRON 4 MG/2 ML VIAL IV PRN (15:03)
[2019-04-25] MEDS: cefTRIAXone 1 GM VIAL IV SCH (16:03)
[2019-04-25] MEDS ORDERED: DEXTROSE 50% 50 ML SYRINGE IV ONE (17:00)
[2019-04-25] MEDS ORDERED: SENNOSIDES 1 TABLET PO PRN (21:00)
[2019-04-25] MEDS: LISINOPRIL 20 MG TABLET PO SCH (21:42)
[2019-04-25] MEDS: AZITHROMYCIN 500 MG in DEXTROSE 5% IN WATER 250 ML IV SCH (21:42)
[2019-04-25] MEDS: 0.9 % SODIUM CHLORIDE 10 ML SYRINGE IV SCH (21:42)
[2019-04-25] MEDS: CALCIUM ACETATE 667 MG CAPSULE PO SCH (21:42)
[2019-04-25] MEDS: ATORVASTATIN 20 MG TABLET PO SCH (21:43)
[2019-04-25] MEDS: HEPARIN 5,000 UNIT/ML VIAL SQ SCH (21:43)
[2019-04-25] MEDS: DOCUSATE SODIUM 100 MG CAPSULE PO SCH (21:43)
[2019-04-25 22:56] LABS: Blood Urea Nitrogen 20 mg/dl (6-20); Calcium 8.6 mg/dl (8.6-10.4); Carbon Dioxide 26 mmol/L (22-30); Chloride 92 mmol/L (96-108); Glomerular Filtration Rate 13; Glucose 136 mg/dL (70-105)
[2019-04-26] MEDS: 0.9 % SODIUM CHLORIDE 10 ML SYRINGE IV SCH ×6 (05:16→20:21)
[2019-04-26 05:47] LABS: Basophils # (Auto) 0 K/mcL (0.0-0.3); Basophils % (Auto) 0.3 % (0.0-2.0); Eosinophils # (Auto) 0.2 K/mcL (0.0-0.7); Eosinophils % (Auto) 1.6 % (0.0-7.0); Granulocytes % (Auto) 84.2 % (38.0-78.0); Hematocrit 26.4 % (41.0-55.0); Lymphocytes # (Auto) 0.9 K/mcL (1.5-4.8); Lymphocytes % (Auto) 9.1 % (15.5-49.0); Mean Cell Volume 90.1 fL (80.0-100.0); Mean Corpuscular HGB Conc 33.9 g/dL (31.0-36.0); Mean Platelet Volume 8.1 fL (7.4-10.4); Monocytes # (Auto) 0.5 K/mcL (0.1-0.9); Monocytes % (Auto) 4.8 % (1.0-12.0); Platelet Count 231 K/mcL (140-440); RBC 2.94 M/mcL (4.50-5.90); Red Cell Distribution Width 15.9 % (11.5-14.5); WBC 10.4 K/mcL (4.5-11.0)
[2019-04-26 06:48] LABS: ALT/SGPT 22 U/l (0-40); AST/SGOT 13 U/l (0-37); Albumin 3.7 gm/dL (3.2-5.2); Albumin/Globulin Ratio 1.1 (1.0-2.3); Alkaline Phosphatase 81 U/L (39-117); Bilirubin,Direct < 0.2 mg/dL (0.0-0.3); Bilirubin,Total 0.8 mg/dL (0.0-1.0); Blood Urea Nitrogen 27 mg/dl (6-20); Calcium 8.2 mg/dl (8.6-10.4); Carbon Dioxide 28 mmol/L (22-30); Chloride 96 mmol/L (96-108); Globulin 3.3 gm/dL (2.2-3.7); Glomerular Filtration Rate 9; Glucose 136 mg/dL (70-105); Lactate Dehydrogenase 184 U/L (94-250); Phosphorous 4.9 mg/dL (2.7-4.5); Triglycerides 151 mg/dl (<150); Uric Acid 4.2 mg/dL (2.5-8.0)
[2019-04-26] MEDS: PANTOPRAZOLE 40 MG TABLET PO SCH (07:27)
--- NOTE | 2019-04-26 07:40 | Internal Med Progress Note ---
Medical - PN: Subj Patient information: Note initiated : 04/26/19 at 7:37 am Service Date, if different from initiated Date: [] Patient: Jonathan Medina 39 y/o M admitted on 04/25/19 for shortness of breath. Chief Complaint: [] Interval history: Mr. Medina is a 39 year old M Who presents to the ED with cough and shortness of breath fever chills. Patient states in the middle 90 started coughing but was unable to produce sputum, was not a dry cough. He had chills and sweats. He had shortness of breath. He said he went to bed feeling okay. [place] for [email or web address]. Feels achy all over. In the ED was found to have leukocytosis and a chest x-ray with right-sided infiltrate mildly elevated pro-Ventura and he was 88% on room air when he arrived his PaO2 on ABG was only 55 on 2 L of nasal cannula. He is an end-stage renal disease patient on dialysis Thursday he has an anuric at baseline. Also found to be hyperkalemic with peaked T waves. Creatinine of [address] Vides was contacted for urgent dialysis as patient was scheduled to get dialysis this morning but missed it. 04/26 Slept better. Feeling much better. No shortness of breath or rest. Occasional cough. Review of Systems: denies headache/fever/chills/nausea/vomiting/chest or abdominal pain/diarrhea. Otherwise see above. - Constitutional Vitals: Vital Signs Temp Pulse Resp BP Pulse Ox 98.9 F 92 H 20 140/70 92 04/26/19 03:42 04/26/19 03:42 04/26/19 03:42 04/26/19 03:42 04/26/19 03:42 Period Temp Pulse Resp BP Sys/Lockett Pulse Ox Last 24 Hr 98.0 F-98.9 F 84-119 11-37 85-175/44-108 91-98 Intake and Output 04/25/19 04/26/19 04/26/19 21:59 05:59 13:59 Intake Total 240 450 Output Total 2800 Balance -2560 450 Weight 89.414 kg Intake & Output: Intake & Output 04/25/19 04/26/19 04/26/19 21:59 05:59 13:59 Intake Total 240 450 Output Total 2800 Balance -2560 450 Weight 89.414 kg Intake: IV 250 Zithromax 500 mg In Dextrose 5% 250 in Water 250 ml @ 250 mls/hr IV DAILY [facility] Rx#:[id number] Oral 240 200 Output: Void Amount 100 Hemodialysis UF 2700 Other: Urine Appearance Clear Urine Color Straw # Bowel Movements 1 Exam: General: Alert, Awake, No acute Distress Eyes/N/T: EOMI, legally blind in the right eye Head/Neck: neck supple, CV: RRR, No murmurs, Pulm: Rhonchi cleared up on right, no wheezing abd: soft, nontender, +BS x4 Ext: no clubbing/cyanosis, trace b/l LE edema Neuro: Alert, no focal deficits, moves all extremities, Skin: warm/dry Medical - PN: Obj Da - Labs CBC & Chem 7: 04/26/19 03:47 04/26/19 03:47 Labs: Abnormal Lab Results 04/26/19 04/26/19 04/25/19 03:47 03:47 21:37 WBC RBC 2.94 L Hgb 9.0 L Hct 26.4 L RDW 15.9 H Gran % 84.2 H Lymph % (Auto) 9.1 L Gran # 8.7 H Lymph # (Auto) 0.9 L Potassium Chloride 92 L Carbon Dioxide Anion Gap 19.0 H BUN 27 H Creatinine 7.0 H* 5.2 H* Glucose 136 H 136 H Calcium 8.2 L Phosphorus 4.9 H GGT 64 H Triglycerides 151 H 04/25/19 04/25/19 11:20 11:20 WBC 17.4 H RBC 3.64 L Hgb 11.0 L Hct 32.7 L RDW 15.5 H Gran % 90.4 H Lymph % (Auto) 4.1 L Gran # 15.7 H Lymph # (Auto) 0.7 L Potassium 6.6 H* Chloride Carbon Dioxide 20 L Anion Gap 18.0 H BUN 71 H Creatinine 13.1 H* Glucose 189 H Calcium 7.5 L Phosphorus GGT Triglycerides Meds: Medications Acetaminophen (Tylenol) 650 mg PO Q6HP PRN PRN Reason: PAIN/FEVER > 101 Albuterol/Ipratropium (Duoneb) 3 ml NEB Q4HP PRN PRN Reason: Shortness Of Breath Amlodipine Besylate (Norvasc) 10 mg PO QDAY [facility] Aspirin (Aspirin) 81 mg PO DAILY [facility] Atorvastatin Calcium (Lipitor) 40 mg PO HS [facility] Last Admin: 04/25/19 21:43 Dose: Not Given Documented by: Calcium Acetate (Phoslo) 1,334 mg PO TIDCC [facility] Last Admin: 04/25/19 21:42 Dose: 1,334 mg Documented by: Ceftriaxone Sodium (Rocephin) 1 gm IV DAILY [facility] Last Admin: 04/25/19 16:03 Dose: Not Given Documented by: Docusate Sodium (Colace) 100 mg PO BID [facility] Last Admin: 04/25/19 21:43 Dose: Not Given Documented by: Ergocalciferol (Drisdol) 50,000 unit PO We@0900 [facility] Escitalopram Oxalate (Lexapro) 10 mg PO DAILY [facility] Heparin Sodium (Porcine) (Heparin) 5,000 unit SQ Q12 [facility] Last Admin: 04/25/19 21:43 Dose: 5,000 unit Documented by: Hydralazine HCl (Apresoline) 0 mg IV Q2HP PRN PRN Reason: Hypertension Azithromycin 500 mg/ Dextrose 250 mls @ 250 mls/hr IV DAILY [facility]; Protocol Stop: 04/27/19 09:59 Last Infusion: 04/25/19 23:03 Dose: Infused Documented by: Lisinopril (Zestril) 40 mg PO HS [facility] Last Admin: 04/25/19 21:42 Dose: 40 mg Documented by: Ondansetron HCl (Zofran) 4 mg IV Q4HP PRN PRN Reason: Nausea And Vomiting Oxycodone/Acetaminophen (Percocet 10-325mg) 1 tab PO Q4HP PRN; Protocol PRN Reason: Pain Last Admin: 04/25/19 15:48 Dose: 1 tab Documented by: Pantoprazole Sodium (Protonix) 40 mg PO QAMAC [facility] Last Admin: 04/26/19 07:27 Dose: 40 mg Documented by: Polyethylene Glycol (Miralax) 17 gm PO DAILYP PRN PRN Reason: Constipation Senna (Senokot) 2 tab PO HSP PRN PRN Reason: Constipation Sodium Chloride (Saline Flush) 10 ml IV Q8 [facility] Last Admin: 04/26/19 05:16 Dose: 10 ml Documented by: Torsemide (Demadex) 60 mg PO DAILY@1200 YFN Torsemide (Demadex) 40 mg PO DAILY@0900 [facility] Vitamin B Complex (Vitamin B Complex) 1 cap PO DAILY [facility] Medical - PN: A/P - Time Spent With Patient Total time spent is greater than 50% in coordination of care (as documented) at patient's floor/unit and/or counseling patient: - Narrative A/P Narrative: A: *CAP: -leukocytosis resolved *Acute hypoxic respiratory failure: -now on room air *Hyperkalemia: With peak T waves *Hypocalcemia: improved *ESRD (HD on MWF): Follows with Dr. Vides -HD yesterday *Anemia, chronic *DM with retinopathy/nephropathy: *HTN/HLD: *GERD: *Chronic mild elevation in white blood cells: *Depression: P: -Rocephin/azithromycin, MRSA screen neg -SC/BC pending -IS/Acapella -Dr. Vides for hemodialysis -Continue home blood pressure medications with as needed IV - -ppx: Heparin/home PPI Medical - PN: Qual - VTE Deep Vein Thrombosis/Pulmonary Embolism Present on Admission: No
[2019-04-26] MEDS: hydrALAZINE 20 MG/ML VIAL IV PRN ×2 (07:52→11:29)
--- NOTE | 2019-04-26 08:17 | XRay Report ---
CLINICAL INFORMATION: Follow-up pneumonia COMPARISON: 04/25/2019 FINDINGS: Heart size, mediastinum and pulmonary vessels are normal for technique. The patchy right upper and middle lobe infiltrates have improved considerably since yesterday with mild residual. The remaining lungs are clear. No effusions. IMPRESSION: Marked improvement in right upper/middle lobe infiltrates with mild patchy residual Interpreted and Authenticated by: Art Rodrigues 04/26/19
[2019-04-26] MEDS: AZITHROMYCIN 500 MG in DEXTROSE 5% IN WATER 250 ML IV SCH (09:00)
[2019-04-26] MEDS: HEPARIN 5,000 UNIT/ML VIAL SQ SCH ×2 (09:00→20:20)
[2019-04-26] MEDS: cefTRIAXone 1 GM VIAL IV SCH (09:01)
[2019-04-26] MEDS: CALCIUM ACETATE 667 MG CAPSULE PO SCH ×3 (09:01→17:24)
[2019-04-26] MEDS: TORSEMIDE 10 MG TABLET PO SCH (09:03)
[2019-04-26] MEDS: ESCITALOPRAM 10 MG TABLET PO SCH (09:03)
[2019-04-26] MEDS: amLODIPine 10 MG TABLET PO SCH (09:04)
[2019-04-26] MEDS: ASPIRIN 81 MG TAB.CHEW PO SCH (09:04)
[2019-04-26] MEDS: DOCUSATE SODIUM 100 MG CAPSULE PO SCH ×2 (09:04→20:21)
[2019-04-26] MEDS: VITAMIN B COMPLEX 1 CAPSULE PO SCH (09:05)
[2019-04-26] MEDS ORDERED: TORSEMIDE 10 MG TABLET PO SCH (12:00)
[2019-04-26] MEDS ORDERED: cefTRIAXone 1 GM VIAL IV ONE (15:00)
[2019-04-26] MEDS: ATORVASTATIN 20 MG TABLET PO SCH (20:20)
[2019-04-26] MEDS: LISINOPRIL 20 MG TABLET PO SCH (20:20)
[2019-04-27] MEDS: 0.9 % SODIUM CHLORIDE 10 ML SYRINGE IV SCH (05:07)
[2019-04-27] MEDS: PANTOPRAZOLE 40 MG TABLET PO SCH (07:45)
--- NOTE | 2019-04-27 07:52 | Discharge Summary ---
Medical - DS: Prov Patient information: Note initiated : 04/27/19 at 7:50 am Service Date, if different from initiated Date: [] Patient: Jonathan Medina 39 y/o M admitted on 04/25/19 for shortness of breath. Chief Complaint: [] Date of admission: 04/25/19 14:58 Discharge date: 04/27/19 Primary care physician: Francine Baer Consults: 04/25/19 13:29 Consult to Physician [CONS] Stat Comment: Consulting Provider: Elpidio Vides Reason For Exam: Physician to Consult 04/25/19 13:31 Consult to Physician [CONS] Stat Comment: Consulting Provider: Steve Alvarez Reason For Exam: Physician to Consult Medical - DS: Meds - Discharge Medications Prescriptions: Cefdinir 300 mg PO BID #10 cap Transmission Status: Pending to [facility] Azithromycin [Zithromax] 500 mg PO DAILY #1 tab Transmission Status: Pending to [facility] Active and Home Medications: Home Medications amlodipine 10 mg tablet 10 mg PO QDAY 05/28/18 [History Confirmed 04/25/19 Last Taken 02/21/19 09:00] calcium acetate 667 mg tablet 1,334 mg PO TID tab 05/28/18 [History Confirmed 04/25/19 Last Taken 02/20/19 17:00] torsemide 20 mg tablet 40 mg PO QDAY tab 05/28/18 [History Confirmed 04/25/19 Last Taken 02/21/19 09:00] Ergocalciferol (Vitamin D2) [Ergocalciferol] 50,000 units PO WE 10/09/18 [History Confirmed 04/25/19 Last Taken 02/16/19 09:00] Nephro-Kaila Rx Tablet 1 tab PO DAILY 10/09/18 [History Confirmed 04/25/19 Last Taken 02/21/19 09:00] Acetaminophen [Tylenol] 650 mg PO Q6-8HP PRN 01/05/19 [History Confirmed 04/25/19 Last Taken 02/21/19 12:00] Albuterol Sulfate [Albuterol Sulfate Hfa] 2 inh PO Q4-6HP PRN 01/05/19 [History Confirmed 04/25/19 Last Taken Unknown] Escitalopram [Lexapro] 10 mg PO DAILY 01/05/19 [History Confirmed 04/25/19 Last Taken 02/21/19 09:00] Lisinopril [Zestril] 40 mg PO HS 01/05/19 [History Confirmed 04/25/19 Last Taken 02/20/19 22:00] Ondansetron [Zofran ODT] 4 mg SL Q4 PRN 01/05/19 [History Confirmed 04/25/19 Last Taken Unknown] Pantoprazole [Protonix] 40 mg PO QAMAC 01/05/19 [History Confirmed 04/25/19 Last Taken 02/21/19 09:00] Aspirin [Aspirin EC] 81 mg PO DAILY #90 tablet. 01/06/19 [Rx Confirmed 04/25/19 Last Taken 02/21/19 09:00] Atorvastatin [Lipitor] 40 mg PO HS #90 tab 01/06/19 [Rx Confirmed 04/25/19 Last Taken 02/20/19 22:00] Torsemide [Demadex] 60 mg PO QNOON 02/21/19 [History Confirmed 04/25/19 Last Taken 02/20/19 12:00] oxyCODONE HCL/ACETAMINOPHEN [Endocet 10-325 mg Tablet] 1 tab PO Q4H PRN #40 tab 02/24/19 [Rx Confirmed 04/25/19 Last Taken Unknown] Azithromycin [Zithromax] 500 mg PO DAILY #1 tab 04/27/19 [Rx Last Taken Unknown] Cefdinir 300 mg PO BID #10 cap 04/27/19 [Rx Last Taken Unknown] Medical - DS: Hosp Hospital Course: Discharge diagnosis *CAP: Managed on azithromycin/ceftriaxone. Clinically improved. Discharging on cefdinir/azithromycin-leukocytosis resolved *Acute hypoxic respiratory failure: Clinically resolved now on room air *Hyperkalemia: Resolved post urinalysis *Hypocalcemia: Normalized *ESRD (HD on MWF): Follows with Dr. Vides. Will continue hemodialysis at nephrology clinic at [place] *Anemia, chronic stable *DM with retinopathy/nephropathy: Stable *HTN/HLD: Stable, managed by nephrology *GERD: *Chronic mild elevation in white blood cells: *Depression: Stable Brief hospital course Mr. Medina is a 39 year old M Who presents to the ED with cough and shortness of breath fever chills. Patient states in the middle 90 started coughing but was unable to produce sputum, was not a dry cough. He had chills and sweats. He had shortness of breath. He said he went to bed feeling okay. 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 Feels achy all over. In the ED was found to have leukocytosis and a chest x-ray with right-sided infiltrate mildly elevated pro-Ventura and he was 88% on room air when he arrived his PaO2 on ABG was only 55 on 2 L of nasal cannula. He is an end-stage renal disease patient on dialysis Thursday he has an anuric at baseline. Also found to be hyperkalemic with peaked T waves. Creatinine of [address] Vides was contacted for urgent dialysis as patient was scheduled to get dialysis this morning but missed it. 04/26 Slept better. Feeling much better. No shortness of breath or rest. Occasional cough. 04/27-patient doing well. No overnight events. Currently on room air. Feels at baseline able to ambulate. Requesting discharge. Detailed discharge instructions as below. Discharge diagnosis: . - Time Spent with Patient Total time spent providing and/or coordinating discharge services: Greater than 30 minutes Medical - DS: Exam - Constitutional Vitals: Vital Signs Temp Pulse Resp BP BP Pulse Ox 04/27/19 03:44 98.9 F 83 16 153/65 95 04/26/19 22:49 98.7 F 16 144/70 95 04/26/19 18:42 98.7 F 18 144/69 94 04/26/19 14:52 143/69 94 04/26/19 11:26 98.5 F 20 151/80 95 04/26/19 09:06 121/64 Intake and Output 04/26/19 04/27/19 04/27/19 21:59 05:59 13:59 Intake Total 600 360 Output Total 150 100 Balance 450 260 Intake: Nourishment/Supplement quantity 120 (ml) Oral 480 360 Output: Void Amount 150 100 Other: Meal Nourishment/Supplement Percent of Meal Consumed 100% Feeding Ability Independent Nourishment/Supplement name slava Urine Appearance Clear Clear Urine Color Bright Yellow Dark Yellow Weight 200 lb 3.2 oz Medical - DS: Data Labs on day of discharge: Preliminary micro results at discharge 04/25/19 12:40 Blood Culture - Preliminary Blood 04/25/19 12:58 Blood Culture - Preliminary Blood Medical - DS: A/P - Patient/Caregiver Discharge Instructions Activity: increase activity as tolerated, resume usual activities as tolerated Diet: Renal Additional Instructions: Follow-up with nephrology for hemodialysis as scheduled Continue antibiotic azithromycin for additional 1 dose and oral cefdinir for add itional 5 days Return to ER if fever chills, cough, diarrhea Reviewed the side effect profile of antibiotics including diarrhea, C. difficile, allergic reaction which can be minimized by close monitoring of's adverse reactions Prescriptions: Cefdinir 300 mg PO BID #10 cap Transmission Status: Pending to [facility] Azithromycin [Zithromax] 500 mg PO DAILY #1 tab Transmission Status: Pending to [facility] - Follow up Plan Follow up with: Francine Baer ARNP [Primary Care Provider] - Disposition: Home, Self-Care Prognosis: Critical Rehab Potential: Fair I certify that the patient requires SNF services: No Overall status at discharge: patient is progressing back to baseline Medical - DS: Qual - VTE Deep Vein Thrombosis/Pulmonary Embolism Present on Admission: No
[2019-04-27] MEDS: AZITHROMYCIN 500 MG in DEXTROSE 5% IN WATER 250 ML IV SCH (08:22)
[2019-04-27] MEDS: CALCIUM ACETATE 667 MG CAPSULE PO SCH (08:31)
[2019-04-27] MEDS: HEPARIN 5,000 UNIT/ML VIAL SQ SCH (08:32)
[2019-04-27] MEDS: DOCUSATE SODIUM 100 MG CAPSULE PO SCH (08:32)
[2019-04-27] MEDS: ASPIRIN 81 MG TAB.CHEW PO SCH (08:32)
[2019-04-27] MEDS: TORSEMIDE 10 MG TABLET PO SCH (08:32)
[2019-04-27] MEDS: ESCITALOPRAM 10 MG TABLET PO SCH (08:33)
[2019-04-27] MEDS: amLODIPine 10 MG TABLET PO SCH (08:33)
[2019-04-27] MEDS: VITAMIN B COMPLEX 1 CAPSULE PO SCH (08:34)
[2019-04-27] MEDS ORDERED: ERGOCALCIFEROL (VITAMIN D2) 50,000 UNIT CAPSULE PO SCH (09:00)
[2019-04-27] MEDS ORDERED: cefTRIAXone 2 GM in DEXTROSE 5% IN WATER 50 ML IV SCH (09:00)
--- NOTE | 2019-04-27 09:22 | Nephrology Progress Note ---
Subjective Patient information: Note initiated : 04/27/19 at 9:20 am Service Date, if different from initiated Date: [] Patient: Jonathan Medina 39 y/o M admitted on 04/25/19 for shortness of breath. Chief Complaint: [] Feeling a lot better. Still has some cough. Objective - Vital Signs Vital signs: Vital Signs Temp Pulse Resp BP BP Pulse Ox 04/27/19 03:44 98.9 F 83 16 153/65 95 04/26/19 22:49 98.7 F 16 144/70 95 04/26/19 18:42 98.7 F 18 144/69 94 04/26/19 14:52 143/69 94 04/26/19 11:26 98.5 F 20 151/80 95 Intake and Output 04/26/19 04/27/19 04/27/19 21:59 05:59 13:59 Intake Total 600 360 Output Total 150 100 Balance 450 260 Intake: Nourishment/Supplement quantity 120 (ml) Oral 480 360 Output: Void Amount 150 100 Other: Meal Nourishment/Supplement Percent of Meal Consumed 100% Feeding Ability Independent Nourishment/Supplement name jello Urine Appearance Clear Clear Urine Color Bright Yellow Dark Yellow Weight 200 lb 3.2 oz Intake & Output: Intake & Output 04/26/19 04/27/19 04/27/19 21:59 05:59 13:59 Intake Total 600 360 Output Total 150 100 Balance 450 260 Weight 200 lb 3.2 oz Intake: Nourishment/Supplement quantity 120 (ml) Oral 480 360 Output: Void Amount 150 100 Other: Meal Nourishment/Supplement Percent of Meal Consumed 100% Feeding Ability Independent Nourishment/Supplement name jello Urine Appearance Clear Clear Urine Color Bright Yellow Dark Yellow - General Appearance General appearance: well-developed EENT: ATNC Neck: no JVD Respiratory: no kyphosis Cardiology: no murmurs Gastrointestinal: normoactive bowel sounds Neurologic: no focal deficit - Lab 04/26/19 03:47 04/26/19 03:47 Most recent lab results Calcium 8.2 mg/dl (8.6-10.4) L 04/26/19 03:47 Phosphorus 4.9 mg/dL (2.7-4.5) H 04/26/19 03:47 Magnesium 2.1 mg/dL (1.6-2.5) 04/26/19 03:47 Assessment and Plan (1) Chronic renal failure Status: Acute Comment: Had dialysis Thursday, doing well and is being discharged. He will go to his regular dialysis schedule.
[2019-04-27] MEDS ORDERED: PNEUMOCOCCAL 23-VAL P-SAC VAC 0.5 ML SYRINGE IM ONE (10:00)
--- NOTE | 2019-04-27 10:48 | Consultation ---
DATE OF CONSULTATION: 04/26/2019 REASON FOR CONSULTATION: End-stage renal disease. HISTORY OF PRESENT ILLNESS: The patient is a 39-year-old gentleman who presented to the emergency room with cough and shortness of breath along with fever and chills. It kind of started in the middle of the night and is associated with fever and chills. He was also short of breath. He was getting up some phlegm, but no blood. 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 When he came in to the emergency room, he was found to have right-sided infiltrates and leukocytosis. For that reason, he is hospitalized. He has end-stage renal disease on hemodialysis and dialyzes Mondays, Wednesdays, and Fridays. PAST MEDICAL HISTORY: Significant for: 1. Type 1 diabetes with all the complications of diabetes including diabetic retinopathy, neuropathy and nephropathy. 2. End-stage renal disease on hemodialysis, dialyzes on Mondays, Wednesdays, Fridays. 3. History of fluid overload in the past. 4. Hypertension, longstanding. 5. Anemia related to chronic kidney disease. 6. Hyperphosphatemia related to chronic kidney disease. 7. History of pneumonias in the past. PAST SURGICAL HISTORY: Significant for laparoscopic cholecystectomy for acute cholecystitis about 3 months ago; esophagogastroduodenoscopy in 2017. FAMILY HISTORY: Mother [id number] renal disease and breast cancer. She also had diabetes. Father of throat cancer and diabetes. SOCIAL HISTORY: He denies any tobacco, alcohol or drug use. MEDICATIONS ON ADMISSION: 1. Amlodipine 10 mg once daily. 2. Calcium acetate 667 mg #2 with each meal. 3. Torsemide 20 mg once daily. 4 Vitamin D2 50,000 units once daily. 5. Nephro-Kaila 1 tablet once daily. 6. Albuterol. 7. Lexapro 10 mg daily. 8. Lisinopril 40 mg daily. 9. Pantoprazole 40 mg daily. 10. Aspirin enteric coated 81 mg daily. 11. Lipitor 40 mg daily. ALLERGIES: No known drug allergies. REVIEW OF SYSTEMS: Ten systems were reviewed and as in history of present illness. PHYSICAL EXAMINATION: GENERAL: Alert, oriented x3 in no apparent distress. VITAL SIGNS: Blood pressures 130-150s systolic with diastolic in the 80s. Pulse rates have been in the 80s. HEENT: NC/AT. Pupils are reactive to light. Oral cavity reveals normal mucosa. NECK: Supple. No jugular venous distention. No lymphadenopathy. No thyromegaly. No carotid bruits. LUNGS: Decreased air entry bilaterally, a few rales in the right base. CARDIAC: S1 and S2 heard. No S3, S4. No murmurs. No rubs. ABDOMEN: Soft, nontender, with positive bowel sounds. No mass, no rebound. EXTREMITIES: Did not show any evidence of edema. LABORATORY DATA: White count 10.8 with hemoglobin of 9.0 and a platelet count of 231. Sodium 140, potassium 3.9, chloride of 96, CO2 of 28, BUN of 27, creatinine of 7.0 with calcium of 8.2, phosphorus of 4.9. ASSESSMENT AND PLAN: 1. End-stage renal disease on hemodialysis. He had his regular dialysis treatment yesterday. His electrolytes and fluid status look okay today, so he can have his regular dialysis treatment tomorrow. 2. Pneumonia, managed per hospitalist. 3. Anemia. Hemoglobin dropped a little bit, but we will continue with ___ as an outpatient. Thank you, Dr. Alvarez, for referring this patient for consultation. TESS:[email or web address] Job ID: [id number] Doc ID: [id number] Elpidio Alvarez DO
== END 2019-04-27 10:10 | disposition home or self-care (01) | DRG 193 ==
LOC: ED 11:12 → ICU 14:58
PROVIDERS: ADMIT Internal Medicine; ATTEND Internal Medicine